=== PATIENT | male | born 1950 | race Hispanic/Latino ===

== ENCOUNTER 2018-09-01 13:32 | Emergency (ER) | payer MEDICARE, OTHER ==
[2018-09-01 14:32] LABS: #Basophils 0.1 thou/uL (0.0-0.2); #Eosinphils 0.4 thou/uL (0.0-0.7); #Lymphocytes 0.6 thou/uL (1.20-3.40); #Monocytes 0.5 thou/uL (0.11-0.59); #Neutrophils 4.4 thou/uL (1.40-6.50); %Basophils 2.1 % (0.0-1.0); %Eosinophils 5.9 % (0.0-10.0); %Lymphocytes 10.6 % (21.0-51.0); %Monocytes 8.4 % (0.0-10.0); Hemoglobin 10.9 g/dL (14.0-18.0); Mean Corpuscular HGB CONC 30.2 g/dL (32.0-36.0); Mean Corpuscular Hemoglobin 25.5 pg (27.0-31.0); Mean Corpuscular Volume 84.3 fL (78.0-98.0); Mean Platelet Volume 9.7 fL (7.4-10.4); Platelet Count 122 thou/uL (130-400); RBC Distribution Width 16.9 % (11.5-14.5); Red Blood Cell (RBC) Count 4.28 mill/uL (4.70-6.10)
[2018-09-01] MEDS ORDERED: Sodium Chloride 0.9% 1,000 ML ONE ×2 (14:37→15:48)
[2018-09-01 14:46] LABS: ALT (SGPT) 13 U/L (8-55); AST (SGOT) 37 U/L (5-34); Albumin 2.6 g/dL (3.4-4.8); Alkaline Phosphatase 110 U/L (40-150); Anion Gap 19 mmol/L (10-20); BUN (Urea Nitrogen) 58 mg/dL (8.4-25.7); Bilirubin, Total 0.6 mg/dL (0.2-1.2); CK (CPK) 82 U/L (30-200); Calc. Creatinine Clearance 0 mL/min (70-130); Calcium 8.5 mg/dL (7.8-10.44); Carbon Dioxide 18 mmol/L (23-31); Chloride 102 mmol/L (98-107); Estimated GFR-MDRD 14; Globulin 5.2 g/dL (2.4-3.5); Glucose 123 mg/dL (80-115); Lipase 88 U/L (8-78); Potassium 5.5 mmol/L (3.5-5.1); Protein, Total 7.8 g/dL (5.8-8.1); Sodium 133 mmol/L (136-145)
[2018-09-01 14:48] LABS: CKMB 4.7 ng/mL (0-6.6); Troponin I 0.071 ng/mL (< 0.028)
[2018-09-01] MEDS ORDERED: Ondansetron PF 4 MG/2 ML Vial ONE (15:04)
[2018-09-01] MEDS ORDERED: Piperacillin/Tazobactam 3.375 GM VIAL ONE (15:04)
--- NOTE | 2018-09-01 15:30 | RAD ---
PORTABLE CHEST 1 VIEW: Date; 09/01/18 Time: 1434 hours HISTORY: Nausea and vomiting. Diarrhea. FINDINGS: Comparison made with exam of 10/09/16. The heart is enlarged. A left-sided pacemaker device has been placed in the interim. The aorta is tor tuous. The lungs are expanded without focal areas of consolidation, pneumothoraces, dutch pulmonary e qing, or pleural effusions. IMPRESSION: No acute process. POS: [facility]
[2018-09-01 15:35] LABS: Bilirubin Negative (Negative); Blood, Urine Small (Negative); Glucose, Urine (Dipstick) Negative (Negative); Leukocyte Small (Negative); Nitrite Negative (Negative); Protein, Urine (Dipstick) Trace mg/dL (Neg-Trace); Urobilinogen 0.2 mg/dL (0.2-1.0)
[2018-09-01 15:36] LABS: Clarity SL HAZY (Clear)
[2018-09-01] MEDS ORDERED: Sodium Chloride 0.9% 250 ML 250 ML ONE (15:39)
[2018-09-01 15:42] LABS: Bacteria/HPF 3+ HPF (None Seen); RBC/HPF 0-3 HPF (0-3); WBC/HPF 21-50 HPF (0-3)
== END 2018-09-01 16:29 | disposition short-term general hospital (02) ==
LOC: NAV ERS 13:32
DX: A41.9 Sepsis, unspecified organism (principal); N17.0 Acute kidney failure with tubular necrosis; I10 Essential (primary) hypertension; E11.9 Type 2 diabetes mellitus without complications; Z79.4 Long term (current) use of insulin; Z87.891 Personal history of nicotine dependence; Z86.73 Personal history of transient ischemic attack (TIA), and cerebral infarction without residual deficits; Z79.899 Other long term (current) drug therapy
CPT/HCPCS: 71045; 80053; 81003; 81015; 82550; 82553; 83605; 83690; 84484; 85025; 87040; 87077; 87086; 93005; 96361; 96365; 96367; 96375; J2405; J2543; J3370; J7050

== ENCOUNTER 2018-12-15 13:55 | Outpatient (CLI) | payer MEDICARE, OTHER ==
--- NOTE | 2018-12-15 16:06 | RAD ---
RIGHT SHOULDER 3 VIEWS: Date: 12/15/18 HISTORY: Pain. COMPARISON: None. FINDINGS: Mild degenerative disease acromioclavicular joint. Visualized ribs are unremarkable. There appears to be a layering right-sided pleural effusion. IMPRESSION: 1. No acute fracture or malalignment. 2. Likely a layering right pleural effusion. POS: [facility]
== END 2018-12-15 13:56 | disposition home or self-care (01) ==
LOC: NAV LAB 13:55
PROVIDERS: ATTEND Family Medicine
DX: M25.511 Pain in right shoulder (principal)

== ENCOUNTER 2019-01-27 15:20 | Outpatient (CLI) | payer MEDICARE, OTHER ==
--- NOTE | 2019-01-27 17:32 | RAD ---
CERVICAL SPINE FIVE VIEWS: 01/27/19 HISTORY: Neck pain. Fall. FINDINGS: Lateral examination demonstrates minimal anterolisthesis at C3-4 and C4-5, in the 1-2 mm range. Open mouth odontoid view demonstrates a normal appearing dens and C1-2 articulation. No prevertebral soft tissue swelling. Disc space narrowing, degenerative end plate change and anterior osteophytes formation at C5-6 and C6 -7 noted. IMPRESSION: Cervical spine degenerative change. If symptoms persists, CT advised. POS: OFF
== END 2019-01-27 15:21 | disposition home or self-care (01) ==
LOC: NAV RAD 15:20
PROVIDERS: ATTEND Family Medicine
DX: M54.2 Cervicalgia (principal); M47.812 Spondylosis without myelopathy or radiculopathy, cervical region
CPT/HCPCS: 72040

== ENCOUNTER 2019-03-05 14:23 | Outpatient (CLI) | payer MEDICARE, OTHER ==
--- NOTE | 2019-03-05 14:37 | RAD ---
EXAM: Chest 2 views: HISTORY: Pneumonia COMPARISON: 10/09/2016 FINDINGS: There is an enlarged but stable cardiomediastinal silhouette. A pacemaker is seen with its leads in the right atrium, right ventricle, and coronary sinus. There is a small right pleural effusion. There is no evidence of consolidation or mass. The bones are unremarkable. IMPRESSION: Cardiomegaly and small right pleural effusion
== END 2019-03-05 14:24 | disposition home or self-care (01) ==
LOC: NAV RAD 14:23
PROVIDERS: ATTEND Family Medicine
DX: J18.9 Pneumonia, unspecified organism (principal); I51.7 Cardiomegaly; J90 Pleural effusion, not elsewhere classified
CPT/HCPCS: 71046

== ENCOUNTER 2019-06-13 15:38 | Emergency (ER) | payer MEDICARE, OTHER ==
[2019-06-13] MEDS ORDERED: Ketorolac Tromethamine 60 MG/2 ML VIAL ONE (16:12)
== END 2019-06-13 16:33 | disposition home or self-care (01) ==
LOC: NAV ERS 15:38
DX: B02.9 Zoster without complications (principal); E11.9 Type 2 diabetes mellitus without complications; I12.0 Hypertensive chronic kidney disease with stage 5 chronic kidney disease or end stage renal disease; N18.6 End stage renal disease; Z79.4 Long term (current) use of insulin; Z99.2 Dependence on renal dialysis
CPT/HCPCS: 96372; 99282; J1885

== ENCOUNTER 2019-10-08 11:25 | Emergency (ER) | payer MEDICARE, OTHER ==
[2019-10-08] MEDS ORDERED: Piperacillin/Tazobactam 4.5 GM VIAL ONE (11:57)
[2019-10-08] MEDS ORDERED: Sodium Chloride 0.9% 100 ML ONE (11:57)
[2019-10-08 12:07] LABS: #Basophils 0.1 thou/uL (0.0-0.2); #Eosinphils 0.1 thou/uL (0.0-0.7); #Monocytes 0.8 thou/uL (0.11-0.59); #Neutrophils 9.3 thou/uL (1.40-6.50); %Basophils 0.7 % (0.0-1.0); %Eosinophils 0.9 % (0.0-10.0); %Lymphocytes 5.9 % (21.0-51.0); %Monocytes 7.4 % (0.0-10.0); %Neutrophils 85.1 % (42.0-75.0); Hemoglobin 8.3 g/dL (14.0-18.0); MDiff Complete? YES; Mean Corpuscular Hemoglobin 31.6 pg (27.0-31.0); Mean Platelet Volume 7.7 fL (7.4-10.4); Platelet Count 92 thou/uL (130-400); RBC Distribution Width 16.6 % (11.5-14.5); Red Blood Cell (RBC) Count 2.61 mill/uL (4.70-6.10); White Blood Cell (WBC) Count 10.9 thou/uL (4.8-10.8)
[2019-10-08 12:08] LABS: Anisocytosis SLIGHT = 6-15 cells (100X) (0-5/hpf); Hypochromia SLIGHT = 6-15 cells (100X) (0-5/hpf); Macrocytosis SLIGHT = 6-15 cells (100X) (0-5/hpf); Platelet Morphology Comment Appears Decreased; Target Cells SLIGHT = 2-5 cells (100X) (0-1/hpf)
[2019-10-08 12:14] LABS: ALT (SGPT) 15 U/L (8-55); AST (SGOT) 29 U/L (5-34); Albumin 1.9 g/dL (3.4-4.8); Alkaline Phosphatase 126 U/L (40-110); Anion Gap 13 mmol/L (10-20); BUN (Urea Nitrogen) 34 mg/dL (8.4-25.7); Bilirubin, Total 0.5 mg/dL (0.2-1.2); Calc. Creatinine Clearance 0 mL/min (70-130); Calcium 7.5 mg/dL (7.8-10.44); Carbon Dioxide 24 mmol/L (23-31); Chloride 94 mmol/L (98-107); Estimated GFR-MDRD 11; Globulin 4.1 g/dL (2.4-3.5); Glucose 154 mg/dL (80-115); Potassium 3.9 mmol/L (3.5-5.1); Sodium 127 mmol/L (136-145)
[2019-10-08] MEDS ORDERED: Sodium Chloride 0.9% 1,000 ML ONE (12:18)
[2019-10-08] MEDS ORDERED: Sodium Chloride 0.9% 250 ML 250 ML ONE (12:24)
--- NOTE | 2019-10-08 13:10 | RAD ---
XR Chest 1 View HISTORY: Shortness of breath COMPARISON: 03/05/2019 FINDINGS: The heart size is enlarged. Left-sided pacer device is again seen. There has been placement of right sided dialysis catheter with tip in the projection of the cavoatrial junction. No pneumothoraces are seen. There is mild prominence of the pulmonary vascularity. A small right pleural effusion is again noted.
[2019-10-08 13:22] LABS: CKMB 1.4 ng/mL (0-6.6)
== END 2019-10-08 13:10 | disposition short-term general hospital (02) ==
LOC: NAV ERS 11:25
DX: I95.9 Hypotension, unspecified (principal); M79.605 Pain in left leg; M79.604 Pain in right leg; R53.1 Weakness; I13.2 Hypertensive heart and chronic kidney disease with heart failure and with stage 5 chronic kidney disease, or end stage renal disease; E11.22 Type 2 diabetes mellitus with diabetic chronic kidney disease; I50.9 Heart failure, unspecified; N18.6 End stage renal disease; K72.10 Chronic hepatic failure without coma; E11.40 Type 2 diabetes mellitus with diabetic neuropathy, unspecified; E11.42 Type 2 diabetes mellitus with diabetic polyneuropathy; N40.0 Benign prostatic hyperplasia without lower urinary tract symptoms; Z79.4 Long term (current) use of insulin; Z79.899 Other long term (current) drug therapy; Z99.2 Dependence on renal dialysis
CPT/HCPCS: 36415; 36416; 71045; 80053; 82550; 82553; 83605; 84484; 85025; 87040; 87077; 87149; 87186; 93005; 96365; J2543; J3370; J3490; J7050